=== PATIENT | female | born 1955 | race Caucasian/White ===

== ENCOUNTER 2016-07-06 16:45 | Inpatient (IN) | payer MEDICARE ==
--- NOTE | 2016-07-15 10:07 | NUR ---
0945: REPORT RECEIVED FROM [facility]/NIELS MUNGUIA-STUDENT RN. AM IN AGREEMENT WITH PREVIOUS ASSESSMENT. PT STABLE AT THIS TIME, RESTING IN BED WITH EYES CLOSED, NO S/SX OF DISTRESS NOTED AT THIS TIME, WILL CONTINUE TO MONITOR.
[2016-07-15] MEDS ORDERED: LIPITOR40 MG PO (12:05)
[2016-07-15] MEDS ORDERED: ZESTRIL20 MG PO (12:06)
[2016-07-15] MEDS ORDERED: ZANAFLEX4 MG PO (12:07)
[2016-07-15] MEDS ORDERED: COLACE100 MG PO (12:07)
[2016-07-15] MEDS ORDERED: GABAPENTIN300 MG PO (12:18)
[2016-07-15] MEDS ORDERED: FOLIC ACID1 MG PO (12:18)
[2016-07-15] MEDS ORDERED: OMEPRAZOLE40 MG PO (12:19)
[2016-07-15] MEDS ORDERED: NORVASC5 MG PO (12:19)
[2016-07-15] MEDS ORDERED: COUMADIN2 MG PO (12:19)
[2016-07-15] MEDS ORDERED: ASPIRIN EC81 MG PO (12:19)
[2016-07-15] MEDS ORDERED: SENOKOT8.6 MG PO (12:19)
[2016-07-15] MEDS ORDERED: KLONOPIN1 MG PO (12:20)
[2016-07-15] MEDS ORDERED: EFFEXOR XR150 MG PO (12:20)
[2016-07-15] MEDS ORDERED: BENADRYL25 MG PO (12:20)
[2016-07-15] MEDS ORDERED: NORCO 10-325 T1 EACH PO (12:21)
== END 2016-07-15 15:40 | disposition home health service (06) | DRG 563 ==
LOC: MED 16:45 → SWI 16:45
PROVIDERS: ADMIT Internal Medicine
DX: S82.841A Displaced bimalleolar fracture of right lower leg, initial encounter for closed fracture (principal); D68.59 Other primary thrombophilia; W10.9XXA Fall (on) (from) unspecified stairs and steps, initial encounter; Y92.009 Unspecified place in unspecified non-institutional (private) residence as the place of occurrence of the external cause; E78.5 Hyperlipidemia, unspecified; I10 Essential (primary) hypertension; S93.402A Sprain of unspecified ligament of left ankle, initial encounter; G89.29 Other chronic pain; M54.5 Low back pain; K59.09 Other constipation; G62.9 Polyneuropathy, unspecified; F41.9 Anxiety disorder, unspecified; F32.9 Major depressive disorder, single episode, unspecified; Z79.82 Long term (current) use of aspirin; Z79.01 Long term (current) use of anticoagulants; Z79.899 Other long term (current) drug therapy; Z90.710 Acquired absence of both cervix and uterus; Z90.49 Acquired absence of other specified parts of digestive tract; Z81.1 Family history of alcohol abuse and dependence; Z82.49 Family history of ischemic heart disease and other diseases of the circulatory system; Z86.711 Personal history of pulmonary embolism
CPT/HCPCS: 97162-GP; 97166; J1650